=== PATIENT | female | born 1950 | race Caucasian/White ===

== ENCOUNTER → 2017-11-02 | Outpatient (CLI) | payer MEDICARE ==
[2017-11-02 11:34] LABS: T4, Free (Free Thyroxine) 0.95 ng/dL (0.78-2.19)
[2017-11-02 17:38] LABS: Hemoglobin A1C 5.2 % (4.0-6.0)
== END | disposition home or self-care (01) ==
LOC: LABWHC1 10:24
PROVIDERS: ATTEND Internal Medicine
DX: E03.9 Hypothyroidism, unspecified (principal); R73.01 Impaired fasting glucose
CPT/HCPCS: 36415; 80061; 82947; 83036; 84439; 84443; 84481

== ENCOUNTER → 2018-05-24 | Outpatient (CLI) | payer MEDICARE ==
--- NOTE | 2018-05-26 14:03 | MM ---
Reason for exam: screening (asymptomatic). Last mammogram was performed 1 year and 1 month ago. History: Patient is postmenopausal and has history of other cancer at age 62. 2 benign excisional biopsies of the right breast. Took hormonal contraceptives for 2 years beginning at age 15. Took estrogen for 1 year beginning at age 45. Taking unspecified hormones for 20 years beginning at age 38. MG 3D Screening Mammo W/Cad Bilateral CC and MLO view(s) were taken. Prior study comparison: April 11, 2017, bilateral MG 3d screening mammo w/cad. March 28, 2016, bilateral MG 3d screening mammo w/cad. The breast tissue is heterogeneously dense. This may lower the sensitivity of mammography. No significant changes when compared with prior studies. ASSESSMENT: Benign, BI-RAD 2 RECOMMENDATION: Routine screening mammogram of both breasts in 1 year.
== END | disposition home or self-care (01) ==
LOC: RADMAMWWP 09:37
PROVIDERS: ATTEND Internal Medicine
DX: Z12.31 Encounter for screening mammogram for malignant neoplasm of breast (principal)
CPT/HCPCS: 77063; 77067

== ENCOUNTER → 2019-03-04 | Outpatient (CLI) | payer MEDICARE ==
[2019-03-04 12:02] LABS: Basophils % (A) 1 %; Eosinophils % (A) 1 %; HCT 41.9 % (34.0-46.0); HGB 13.7 gm/dL (11.4-16.0); Lymphocytes # (A) 1.1 k/uL (1.0-4.8); Lymphocytes % (A) 26 %; MCH 31.6 pg (25.0-35.0); MCHC 32.8 g/dL (31.0-37.0); MCV 96.4 fL (80.0-100.0); Mean Platelet Volume 6.8; Monocytes # (A) 0.3 k/uL (0-1.0); Monocytes % (A) 6 %; Neutrophils # (A) 2.7 k/uL (1.3-7.7); Neutrophils % (A) 63 %; Platelet Count 304 k/uL (150-450); RBC 4.35 m/uL (3.80-5.40); RDW 12.6 % (11.5-15.5); WBC 4.3 k/uL (3.8-10.6)
[2019-03-04 13:02] LABS: Partial Thromboplastin Time 25.4 sec (22.0-30.0); Prothrombin Time 10.6 sec (9.0-12.0)
[2019-03-04 18:45] LABS: T4, Free (Free Thyroxine) 1.1 ng/dL (0.80-1.80)
[2019-03-04 19:12] LABS: Cardiolipin Ab IgG Interp NEGATIVE (NEGATIVE); Cardiolipin Ab IgM Interp NEGATIVE (NEGATIVE); Cardiolipin IgM Antibody 4.3 U/mL
[2019-03-04 19:37] LABS: Albumin 4.5 g/dL (3.80-4.90); Albumin/Globulin Ratio 2.5 (1.60-3.17); Anion Gap 5.9 mmol/L (4.00-12.00); BUN/Creat Ratio 26.67 Ratio (12.00-20.00); Calcium 9.8 mg/dL (8.7-10.3); Carbon Dioxide 29.1 mmol/L (21.6-31.8); Chol/HDL Ratio 2.52; Globulin 1.8 g/dL (1.6-3.3); Immunoglobulin E 7.84 IU/mL (0.00-114.00); LDL Cholesterol,Calculated 141.8 mg/dL (0.0-131.0); Non-African American GFR(CKD) 92.4 (60.0-200.0); Potassium 4.3 mmol/L (3.5-5.5); Total Bilirubin 0.7 mg/dL (0.3-1.2); Total Protein 6.3 g/dL (6.2-8.2); VLDL Calculation 15.2 mg/dL (5.00-40.00)
[2019-03-05 09:58] LABS: APTT 38 Sec(s) (<43); Anti-Thrombin III Antigen 105 % (80 - 120); Dilute Russell Viper Venom 34 Sec(s) (<44)
[2019-03-05 09:59] LABS: Free Protein S Antigen 89 % (50 - 147)
[2019-03-05 11:14] LABS: Protein C (Activity) 116 % (71-138)
[2019-03-05 13:21] LABS: Immunoglobulin M 37.6 mg/dL (40.0-280.0)
== END | disposition home or self-care (01) ==
LOC: LABWHC1 11:15
PROVIDERS: ATTEND Internal Medicine
DX: Z13.6 Encounter for screening for cardiovascular disorders (principal); E03.9 Hypothyroidism, unspecified; R19.4 Change in bowel habit; D68.69 Other thrombophilia; E55.9 Vitamin D deficiency, unspecified
CPT/HCPCS: 36415; 80053; 80061; 82306; 82784; 82785; 83090; 84439; 84443; 84481; 85025; 85301; 85303; 85306; 85610; 85613; 85730; 86147

== ENCOUNTER → 2019-04-01 | Outpatient (CLI) | payer MEDICARE ==
--- NOTE | 2019-04-01 13:03 | CTL ---
EXAMINATION TYPE: CT Low Dose Lung DATE OF EXAM ORDERED: 04/01/2019 COMPARISON: None HISTORY: . Low Dose CT Lung Screening CT DLP: [address] CTDI: 1.76 mGy IV CONTRAST USED: None. SCREENING VISIT: First visit COMPARISON: None. TECHNIQUE: Low dose computed tomography scan was performed through the chest at 1 millimeter thick se ctions and reconstructed images in the coronal plane at [address] DIAGNOSTIC QUALITY: Satisfactory FINDINGS: LUNG NODULES: Right lung: Pleural-based nodule right upper lobe 3 mm image 72. Solid pleural-based nodule right upp er lobe measuring 4 mm image 89. 2.5 mm right upper lobe pleural-based nodule image 124. 5 mm right u pper lobe pleural-based nodule image 161. 5.5 mm pleural-based nodules solid in appearance right lowe r lobe image 176. 3.5 mm pulmonary nodule is seen posteriorly image 182. Pleural-based nodule right l ower lobe measuring 2.8 mm image 193. 2.8 mm right lower lobe pleural-based primary nodule image 199. 5 mm pulmonary nodule right lower lobe image 213. Solid pleural-based nodule right lower lobe measur ing 8 mm image 235. Left lun mm pulmonary nodule left lower lobe image 256. Pleural-based pulmonary nodule left lower lobe measuring 4.6 mm. 4.2 mm left lower lobe pulmonary nodule image 2:30. Pleural-based 3 mm pulmon danika nodule image 130. 4 mm pulmonary nodule image 187. Left upper lobe pleural-based nodule measuring 3.2 mm image 90 LUNGS: COPD: Severity: None Fibrosis: Severity:None Lymph nodes: None Other findings: None RIGHT PLEURAL SPACE: Effusion: None Calcification: None Thickening: None Pneumothorax: None LEFT PLEURAL SPACE: Effusion: None Calcification: None Thickening: None Pneumothorax: None HEART: Heart Size: Mildly enlarged Coronary calcification: Mild Pericardial effusion: None OTHER FINDINGS: Upper abdomen: No significant abnormality Bony thorax: Degenerative changes Supraclavicular region: No significant abnormalityOther: No significant abnormalityI IMPRESSION: 1. Multiple bilateral pulmonary nodules largest of which measures [address] CHEST RECOMMENDATION: Follow-up recommended. Smoking cessation advised. CT LUNG RAD: LUNG RAD CATEGORY 3 probably benign
== END | disposition home or self-care (01) ==
LOC: RADCTMAIN 12:13
PROVIDERS: ATTEND Internal Medicine
DX: R91.8 Other nonspecific abnormal finding of lung field (principal); Z87.891 Personal history of nicotine dependence

== ENCOUNTER 2019-04-09 09:19 | Emergency (ER) | payer MEDICARE ==
[2019-04-09 09:25] VITALS: TEMP 97.7
[2019-04-09] MEDS ORDERED: MORPHINE SULFATE 4 MG/ML SYRINGE IVP STA (09:43)
[2019-04-09] MEDS ORDERED: MORPHINE SULFATE 2 MG/ML SYRINGE IM STA (09:50)
--- NOTE | 2019-04-09 09:57 | XR ---
EXAMINATION TYPE: XR pelvis AP view DATE OF EXAM: 04/09/2019 CLINICAL HISTORY: Falling injury with pelvic pain TECHNIQUE: A single AP view of the pelvis is obtained. COMPARISON: None. FINDINGS: There is no acute fracture/dislocation evident in the pelvis. The hip and sacroiliac join ts appear symmetric and unremarkable. Incidental moderate disc space narrowing L4-L5 level. The overl andreas soft tissue appears unremarkable. IMPRESSION: There is no acute fracture or dislocation in the pelvis.
--- NOTE | 2019-04-09 09:59 | XR ---
EXAMINATION TYPE: XR lumbar spine 2 or 3V DATE OF EXAM: 04/09/2019 CLINICAL HISTORY: Fall injury with low back pain TECHNIQUE: Frontal and lateral images of the lumbar spine are obtained. COMPARISON: None FINDINGS: There are 5 lumbar type vertebral bodies identified. The lumbar spine shows straightened alignment without evidence of acute fracture or dislocation. Vertebral body heights remain within nor mal limits. Moderate multilevel disc space narrowing L2-L3 through the L4-L5 levels with moderate ant erior spurring L2-L3 level. Facet arthropathy lower lumbar spine. The overlying soft tissue appears unremarkable. IMPRESSION: No acute fracture or dislocation is seen in the lumbar spine.
[2019-04-09 10:44] VITALS: PULSE 57; RESP 20
--- NOTE | 2019-04-09 10:45 | ED ---
General Adult HPI - General Chief complaint: Fall Stated complaint: fall/back pain Time Seen by Provider: 04/09/19 09:28 Source: patient, family, RN notes reviewed Mode of arrival: ambulatory - History of Present Illness Initial comments: 69-year-old female without any significant past medical history presents to the emergency department for a chief coming of fall. Patient was walking her dog when her dog lunged at another dog. This pulled her down onto the pavement and she fell on her lower back. Patient states she is having low back pain and abdominal pain. States the pain radiates from her low back and her abdomen. She denies any numbness or tingling of the saddle area. Denies any weakness of the lower extremities. Denies any difficulty ambulating. Denies fevers or chills. States his pain all started immediately after her fall.Patient has no other complaints at this time including shortness of breath, chest pain, nausea or vomiting, headache, or visual changes. - Related Data Home Medications Medication Instructions Recorded Confirmed Levothyroxine Sodium [Synthroid] 50 mcg PO DAILY 04/09/19 04/09/19 Allergies Allergy/AdvReac Type Severity Reaction Status Date / Time No Known Allergies Allergy Verified 04/09/19 10:07 Review of Systems ROS Statement: Those systems with pertinent positive or pertinent negative responses have been documented in the HPI. ROS Other: All systems not noted in ROS Statement are negative. Past Medical History Past Medical History: No Reported History History of Any Multi-Drug Resistant Organisms: None Reported Past Surgical History: Hysterectomy, Tonsillectomy Past Psychological History: No Psychological Hx Reported Smoking Status: Former smoker Past Alcohol Use History: Occasional Past Drug Use History: None Reported General Exam General appearance: alert, in no apparent distress Head exam: Present: atraumatic, normocephalic, normal inspection Eye exam: Present: normal appearance, PERRL, EOMI. Absent: scleral icterus, conjunctival injection, periorbital swelling ENT exam: Present: normal exam, mucous membranes moist Neck exam: Present: normal inspection, full ROM. Absent: tenderness, meningismus, lymphadenopathy Respiratory exam: Present: normal lung sounds bilaterally. Absent: respiratory distress, wheezes, rales, rhonchi, stridor Cardiovascular Exam: Present: regular rate, normal rhythm, normal heart sounds. Absent: systolic murmur, diastolic murmur, rubs, gallop, clicks GI/Abdominal exam: Present: soft, tenderness (Minimal generalized lower abdominal tenderness), normal bowel sounds. Absent: distended, guarding, rebound, rigid Back exam: Present: vertebral tenderness (Minimal generalized lumbar vertebral and paraspinal lumbar tenderness. No point tenderness). Absent: CVA tenderness (R), CVA tenderness (L) Psychiatric exam: Present: normal affect, normal mood Course Vital Signs 04/09/19 04/09/19 09:21 10:43 Temperature 97.7 F Pulse Rate 66 57 L Respiratory 18 20 Rate Blood Pressure 123/76 119/70 O2 Sat by Pulse 98 99 Oximetry Procedures - FAST Exam Fluid in Morison's pouch: No Fluid in Splenorenal Junction: No Fluid around bladder, Transverse view: No Fluid around bladder, Sagittal view: No Limited Echocardiogram view: subxiphoid Fluid in Pericardial Sac: No Gross Wall Motion Abnormality: No Study normal for this patient: Yes Images saved for further review: Yes Medical Decision Making - Medical Decision Making Patient was initially evaluated at some lower abdominal discomfort. Discussed the patient and we agreed at this time to get x-rays of the lumbar spine as well as the pelvis and give patient pain medication and to reevaluate her abdominal pain after x-ray. X-ray of the pelvis shows no acute fracture or dislocation. Lumbar spine x-ray shows no acute fracture or dislocation. I did reevaluate the patient and she continues to have very mild lower abdominal tenderness. No fevers or chills. At this point I recommended blood work and CT to evaluate this further evaluate for intra-abdominal trauma or other signs of abdominal pain. Patient adamantly refuses this stating she would much prefer to go home and return if she has worsening symptoms. She is aware of the risks of this including bleeding in abdomen or other intra-abdominal pathology unrelated to fall. Dr. Perdue did a bedside FAST exam which was negative. At this time patient will be discharged home to follow up with primary care. However discussed strict return parameters with her. Disposition Clinical Impression: Fall, Abdominal pain Disposition: HOME SELF-CARE Condition: Good Instructions (If sedation given, give patient instructions): Acute Abdominal Pain (ED) Additional Instructions: Please follow up with primary care in 1-2 days. Please return to the emergency department if you have any worsening symptoms such as fevers or worsening abdominal pain. Is patient prescribed a controlled substance at d/c from ED?: No Referrals: Scott Love MD [Primary Care Provider] - 1-2 days Time of Disposition: 11:16
[2019-04-09 12:40] VITALS: BP 117/74
== END 2019-04-09 12:41 | disposition home or self-care (01) ==
LOC: EC 09:19
DX: R10.9 Unspecified abdominal pain (principal); R10.817 Generalized abdominal tenderness; M54.5 Low back pain; Z87.891 Personal history of nicotine dependence; Z53.20 Procedure and treatment not carried out because of patient's decision for unspecified reasons; W10.1XXA Fall (on)(from) sidewalk curb, initial encounter; Y93.K1 Activity, walking an animal
CPT/HCPCS: 72100; 72170; 96372; 99283

== ENCOUNTER → 2019-12-26 | Outpatient (CLI) | payer MEDICARE ==
--- NOTE | 2019-12-26 11:13 | CTL ---
EXAMINATION TYPE: CT Low Dose Lung DATE OF EXAM ORDERED: 12/26/2019 HISTORY: 69-year-old female personal history of tobacco use/nicotine dependence. Lung cancer screening CT DLP: [address] CTDI: 1.49 mGy Automated exposure control for dose reduction was used. SCREENING VISIT: Short interval follow-up from 04/01/2019 COMPARISON: 04/01/2019 TECHNIQUE: Low dose computed tomography scan was performed through the chest at 1 mm thick sections and reconstructed images in the coronal and sagittal plane. CT DIAGNOSTIC QUALITY: Satisfactory FINDINGS: Heart normal size without pericardial effusion. Ectatic ascending aorta at 3.8 cm. Conventional vessel branching anatomy. No thoracic lymphadenopathy by CT size criteria. Biapical pleural parenchymal scarring. Scattered bilateral pulmonary nodules measuring up to 9 mm are redemonstrated. There are numerous bilateral pulmonary nodules, many of which are in a subpleural distribution and most of which measure 4 to 5 mm. No new pulmonary nodules are seen. No consolidation or pleural effusion. Strandy areas of atelectasis or scarring are noted. Small fat-containing left Bochdalek hernia. Redemonstrated scattered hypodense lesions within the liver, largest at the central right hepatic dome measuring 1.9 cm suggestive of cysts. Bones: No osseous destructive process. Superior endplate Schmorl's node of T12 is new as compared to 04/01/2019. IMPRESSION: 1. LungRADS 2 - benign; stable bilateral pulmonary nodules for 10 months measuring up to 9 mm. 2. A superior endplate Schmorl's node of T12 is new as compared to 04/01/2019. RECOMMENDATION: 1. CONTINUE ANNUAL LOW-DOSE LUNG CANCER SCREENING CT. 2. SMOKING CESSATION. FOLLOW UP CT CHEST RECOMMENDATION: [address] LUNG RAD: Lung-Rad 2 Benign Appearance or Behavior MTDD
== END | disposition home or self-care (01) ==
LOC: RADCTMAIN 07:56
PROVIDERS: ATTEND Internal Medicine
DX: Z12.2 Encounter for screening for malignant neoplasm of respiratory organs (principal); Z87.891 Personal history of nicotine dependence; R91.8 Other nonspecific abnormal finding of lung field

== ENCOUNTER 2020-01-24 08:06 | Day surgery (SDC) | payer MEDICARE ==
[2020-01-23 10:07] VITALS: BMI 20.7
[~2020-01-24 08:06] MED LIST: LACTATED RINGERS 1,000 ML IV SCH
[2020-01-24 08:26] VITALS: RESP 16; TEMP 98
[2020-01-24] MEDS ORDERED: LIDOCAINE 1% (10MG/ML) FOR IV START INTRADERMA ONE (08:37)
[2020-01-24] MEDS ORDERED: PROPOFOL 10 MG/ML 20 ML VIAL IV ONE (09:35)
--- NOTE | 2020-01-24 10:02 | P.PCN ---
Date of Procedure: 01/24/20 Procedure(s) Performed: BRIEF HISTORY: Patient is a 69-year-old pleasant female scheduled for an elective colonoscopy as a part of evaluation of prior history of colon polyps. Last colonoscopy was 5 years ago. PROCEDURE PERFORMED: Colonoscopy with snare polypectomy. PREOPERATIVE DIAGNOSIS: History of colon polyps. IV sedation per Anesthesia. PROCEDURE: After informed consent was obtained, the patient, was brought into the endoscopy unit. IV sedation was administered by Anesthesia under continuous monitoring. Digital rectal examination was normal. Initially the Olympus CF-160 flexible video colonoscope was then inserted in the rectum, gradually advanced into the cecum without any difficulty. Careful examination was performed as the scope was gradually being withdrawn. Ileocecal valve and the appendiceal orifice were visualized and appeared normal. Prep was excellent. Mucosa of the cecum, ascending colon, transverse colon, descending colon, sigmoid colon, and rectum appeared normal. In the proximal rectum there was a 5 mm polyp that was removed by snare polypectomy. Scattered left-sided diverticulosis seen. Retroflexion was performed in the rectum and no lesions were seen. The patient tolerated the procedure well. IMPRESSION: 5 mm proximal rectal polyp status post polypectomy Scattered left-sided diverticulosis RECOMMENDATIONS: Findings of this examination were discussed with the patient as well as her family. She was advised to follow with the biopsy results. She can have a repeat colonoscopy in 5 years based the biopsy results..
[2020-01-24 10:31] VITALS: BP 117/71; PULSE 51
== END 2020-01-24 10:48 | disposition home or self-care (01) ==
LOC: ORWHC2ENDO 08:06
PROVIDERS: ATTEND Internal Medicine Gastroenterology
DX: Z12.11 Encounter for screening for malignant neoplasm of colon (principal); K62.1 Rectal polyp; Z86.010 Personal history of colon polyps; K57.30 Diverticulosis of large intestine without perforation or abscess without bleeding; E07.9 Disorder of thyroid, unspecified; Z90.710 Acquired absence of both cervix and uterus; Z98.890 Other specified postprocedural states; Z79.890 Hormone replacement therapy
CPT/HCPCS: 88305; 45385; J2704

== ENCOUNTER → 2020-07-10 | Outpatient (CLI) | payer MEDICARE ==
[2020-07-10 12:32] LABS: ALT 16 U/L (4-34); AST 25 U/L (14-36); African American GFR (CKD) >90 (>60 ml/min/1.73 sqM); Albumin 3.9 g/dL (3.5-5.0); Albumin/Globulin Ratio 1.7; Alkaline Phosphatase 49 U/L (38-126); Anion Gap 3 mmol/L; Blood Urea Nitrogen 15 mg/dL (7-17); Calcium 9.6 mg/dL (8.4-10.2); Carbon Dioxide 32 mmol/L (22-30); Chloride 100 mmol/L (98-107); Globulin 2.3 g/dL; Glucose 105 mg/dL (74-99); Non-African American GFR(CKD) >90 (>60 ml/min/1.73 sqM); Potassium 4.8 mmol/L (3.5-5.1); Sodium 135 mmol/L (137-145); Total Bilirubin 0.4 mg/dL (0.2-1.3); Total Protein 6.2 g/dL (6.3-8.2)
[2020-07-10 12:49] LABS: T4, Free (Free Thyroxine) 0.99 ng/dL (0.78-2.19)
[2020-07-10 13:17] LABS: Appearance,Urine Clear (Clear); Bilirubin,Urine Negative (Negative); Blood,Urine Negative (Negative); Color,Urine Yellow; Glucose,Urine (UA) Negative (Negative); Ketones,Urine Negative (Negative); Leukocyte Esterase,Urine Negative (Negative); Nitrite,Urine Negative (Negative); PH, Urine 7.5 (5.0-8.0); Protein,Urine Negative (Negative); Specific Gravity,Urine 1.016 (1.001-1.035); Urobilinogen,Urine <2.0 mg/dL (<2.0)
[2020-07-10 13:20] LABS: Cholesterol 256 mg/dL (<200); HDL Cholesterol 95 mg/dL (40-60); LDL Cholesterol,Calculated 145 mg/dL (0-99); Triglycerides 78 mg/dL (<150)
[2020-07-10 20:09] LABS: Basophils # (A) 0.02 X 10*3/uL (0.00-0.10); Basophils % (A) 0.5 %; Eosinophils # (A) 0.04 X 10*3/uL (0.04-0.35); HCT 39.3 % (37.2-46.3); HGB 12.6 g/dL (12.0-15.0); Lymphocytes # (A) 1.22 X 10*3/uL (0.90-5.00); Lymphocytes % (A) 29.5 %; MCHC 32.1 g/dL (32.0-37.0); MCV 96.6 fL (80.0-97.0); Mean Platelet Volume 10.3 fL (9.5-12.2); Monocytes % (A) 12.1 %; Neutrophils # (A) 2.35 X 10*3/uL (1.80-7.70); Neutrophils % (A) 56.7 %; Platelet Count 290 X 10*3/uL (140-440); RBC 4.07 X 10*6/uL (4.10-5.20); RDW 13.2 % (11.5-14.5); WBC 4.14 X 10*3/uL (4.50-10.00)
== END | disposition home or self-care (01) ==
LOC: LABWHC1 10:22
PROVIDERS: ATTEND Internal Medicine
DX: Z00.01 Encounter for general adult medical examination with abnormal findings (principal); E03.9 Hypothyroidism, unspecified; E78.5 Hyperlipidemia, unspecified; E55.9 Vitamin D deficiency, unspecified
CPT/HCPCS: 36415; 80053; 80061; 81003; 82306; 84439; 84443; 84481; 85025

== ENCOUNTER → 2020-10-26 | Outpatient (CLI) | payer MEDICARE ==
--- NOTE | 2020-10-27 10:04 | MM ---
Reason for exam: screening (asymptomatic). Last mammogram was performed 2 years and 5 months ago. History: Patient is postmenopausal and has history of other cancer at age 62. 2 benign excisional biopsies of the right breast. Took hormonal contraceptives for 2 years beginning at age 15. Took estrogen for 1 year beginning at age 45. Taking unspecified hormones for 20 years beginning at age 38. Physical Findings: A clinical breast exam by your physician is recommended on an annual basis and results should be correlated with mammographic findings. MG 3D Screening Mammo W/Cad Bilateral CC and MLO view(s) were taken. Prior study comparison: May 24, 2018, bilateral MG 3d screening mammo w/cad. April 11, 2017, bilateral MG 3d screening mammo w/cad. There are scattered fibroglandular densities. ASSESSMENT: Negative, BI-RAD 1 RECOMMENDATION: Routine screening mammogram of both breasts in 1 year.
== END | disposition home or self-care (01) ==
LOC: RADMAMWWP 09:17
PROVIDERS: ATTEND Internal Medicine
DX: Z12.31 Encounter for screening mammogram for malignant neoplasm of breast (principal)
CPT/HCPCS: 77063; 77067

== ENCOUNTER → 2021-07-01 | Outpatient (CLI) | payer MEDICARE ==
--- NOTE | 2021-07-02 00:02 | CTL ---
EXAMINATION TYPE: CT Low Dose Lung DATE OF EXAM ORDERED: 07/01/2021 HISTORY: Former smoker. Lung cancer screening CT DLP: [address] CTDI: 1.64 mGy Automated exposure control for dose reduction was used. SCREENING VISIT: Follow-up COMPARISON: CT dated 12/26/2019 TECHNIQUE: Low dose computed tomography scan was performed through the chest at 1 mm thick sections a nd reconstructed images in multiple planes at 1 mm and [address] DIAGNOSTIC QUALITY: Satisfactory FINDINGS: LUNG NODULES: No appreciable interval changes regarding the multiple variable sized bilateral pulmona ry and pleural-based calcified and noncalcified nodules measuring up to 9 mm. No definite lung nodule identified. LUNGS: COPD: Severity: Mild Fibrosis: Severity: Stable mild fibrotic changes in the lung apices bilaterally as well as the chroni c scar at the medial aspect of the middle lobe with traction bronchiectasis Lymph nodes: None Other findings: None RIGHT PLEURAL SPACE: Effusion: None Calcification: None Thickening: None Pneumothorax: None LEFT PLEURAL SPACE: Effusion: None Calcification: None Thickening: None Pneumothorax: None HEART: Heart Size: Normal Coronary Calcification: Mild Pericardial Effusion: None OTHER FINDINGS: Upper abdomen: Stable scattered hepatic hypodensities. Bony thorax: Stable mild T11 upper endplate depression and hemangioma within T9 vertebral body. Supraclavicular region: None Other: The pulmonary trunk measures 2.2 cm. IMPRESSION: Stable bilateral pulmonary nodules measuring up to 9 mm as described above. No definite n ew lung nodule identified. CT LUNG RAD AND CT CHEST RECOMMENDATION: Category 2, benign, for continuing annual follow-up in 12 mo nths. S Modifier (other clinically significant findings): None
== END | disposition home or self-care (01) ==
LOC: RADCTMAIN 07:08
PROVIDERS: ATTEND Family Medicine
DX: Z12.2 Encounter for screening for malignant neoplasm of respiratory organs (principal); Z87.891 Personal history of nicotine dependence
CPT/HCPCS: 71271

== ENCOUNTER → 2021-11-16 | Outpatient (CLI) | payer MEDICARE ==
--- NOTE | 2021-11-17 07:39 | MM ---
Reason for Exam: Screening (asymptomatic). Last mammogram was performed 1 year(s) and 1 month(s) ago. Patient History: Menarche at age 10. First Full-Term at age 25. Hysterectomy at age 44. Postmenopausal. Other cancer, age 62. Estrogen for 1 year from age 45 until age 46. Hormonal Contraceptives for 2 years from age 15 until age 23. Currently using Unspecified Hormone, beginning at age 38 for 20 years. Benign Excisional Biopsy on the right side. Benign Excisional Biopsy on the right side. Risk Values: Rosenda 5 year model risk: 2.9%. NCI Lifetime model risk: 7.1%. Prior Study Comparison: 04/11/2017 Bilateral Screening Mammogram, [facility]. 05/24/2018 Bilateral Screening Mammogram, [facility]. 10/26/2020 Bilateral Screening Mammogram, [facility]. Tissue Density: The breast tissue is heterogeneously dense. This may lower the sensitivity of mammography. Findings: Analyzed By CAD. There is no suspicious group of microcalcifications or new suspicious mass in either breast. Overall Assessment: Negative, BI-RAD 1 Management: Screening Mammogram of both breasts in 1 year. A clinical breast exam by your physician is recommended on an annual basis and results should be correlated with mammographic findings. Electronically signed and approved by: Wili Florez M.D. Radiologis
== END | disposition home or self-care (01) ==
LOC: RADMAMWWP 11:26
PROVIDERS: ATTEND Family Medicine
DX: Z12.31 Encounter for screening mammogram for malignant neoplasm of breast (principal)
CPT/HCPCS: 77063; 77067

== ENCOUNTER 2022-07-19 09:49 | Day surgery (SDC) | payer MEDICARE ==
[2022-07-14 17:19] VITALS: BMI 21.9
[~2022-07-19 09:49] MED LIST changes: +LIDOCAINE 1% (10MG/ML) FOR IV START INTRADERMA PRN
[2022-07-19 10:16] VITALS: TEMP 97.5
[2022-07-19] MEDS ORDERED: LIDOCAINE 2% INJ 20 MG/ML (2 ML VIAL) ONE (11:26)
[2022-07-19] MEDS ORDERED: PROPOFOL 10 MG/ML 20 ML VIAL IV ONE (11:26)
--- NOTE | 2022-07-19 11:40 | P.PCN ---
Date of Procedure: 07/19/22 Procedure(s) Performed: BRIEF HISTORY: Patient is a 72-year-old pleasant white female scheduled for an elective colonoscopy as a part of screening for colon cancer/positive ologuard. PROCEDURE PERFORMED: Colonoscopy. PREOPERATIVE DIAGNOSIS: Screening for colon cancer/positive cologuard. IV sedation per Anesthesia. PROCEDURE: After informed consent was obtained, the patient, was brought into the endoscopy unit. IV sedation was administered by Anesthesia under continuous monitoring. Digital rectal examination was normal. Initially the Olympus CF-160 flexible video colonoscope was then inserted in the rectum, gradually advanced into the cecum without any difficulty. Careful examination was performed as the scope was gradually being withdrawn. Ileocecal valve and the appendiceal orifice were visualized and appeared normal. Prep was excellent. Mucosa of the cecum, ascending colon, transverse colon, descending colon, sigmoid colon, and rectum appeared normal. Scattered sigmoid diverticulosis Retroflexion was performed in the rectum and small internal hemorrhoids were seen. The patient tolerated the procedure well. IMPRESSION: Normal-appearing colon from rectum to cecum no evidence of colorectal neoplasia Scattered sigmoid diverticulosis and small internal hemorrhoids. RECOMMENDATIONS: Findings of this examination were discussed with the patient as well as a family. She was advised to have a repeat screening colonoscopy in 10 years..
[2022-07-19 11:47] VITALS: RESP 16
[2022-07-19 11:59] VITALS: BP 128/80; PULSE 58
== END 2022-07-19 12:14 | disposition home or self-care (01) ==
LOC: ORWHC2ENDO 09:49
PROVIDERS: ATTEND Internal Medicine Gastroenterology
DX: K64.8 Other hemorrhoids (principal); K57.30 Diverticulosis of large intestine without perforation or abscess without bleeding; E03.9 Hypothyroidism, unspecified; Z79.890 Hormone replacement therapy
CPT/HCPCS: 45378; J2704; J2001

== ENCOUNTER 2022-11-06 12:57 | Emergency (ER) | payer MEDICARE ==
[2022-11-06 13:04] VITALS: RESP 18
[2022-11-06 13:46] LABS: Basophils % (A) 0 %; Eosinophils # (A) 0.1 k/uL (0-0.7); Eosinophils % (A) 2 %; HGB 14.3 gm/dL (11.4-16.0); Lymphocytes # (A) 1.5 k/uL (1.0-4.8); Lymphocytes % (A) 27 %; MCH 31.6 pg (25.0-35.0); MCHC 33.3 g/dL (31.0-37.0); MCV 94.8 fL (80.0-100.0); Mean Platelet Volume 8.4; Monocytes # (A) 0.4 k/uL (0-1.0); Monocytes % (A) 8 %; Neutrophils # (A) 3.4 k/uL (1.3-7.7); Neutrophils % (A) 61 %; Platelet Count 293 k/uL (150-450); RBC 4.54 m/uL (3.80-5.40); RDW 12.7 % (11.5-15.5); WBC 5.5 k/uL (3.8-10.6)
--- NOTE | 2022-11-06 13:51 | XR ---
EXAMINATION TYPE: XR chest 2V DATE OF EXAM: 11/06/2022 COMPARISON: None INDICATION: Chest pain and tachycardia TECHNIQUE: Frontal and lateral views of the chest are obtained. FINDINGS: The heart size is normal. The pulmonary vasculature is normal. The lungs are clear. There is hyperinflation and flattened diaphragms. Correlate for emphysematous c hange IMPRESSION: 1. No acute pulmonary process. 2. Emphysematous type changes
[2022-11-06 13:56] LABS: Partial Thromboplastin Time 23.4 sec (22.0-30.0); Prothrombin Time 10.7 sec (9.0-12.0)
[2022-11-06 14:03] LABS: ALT 17 U/L (4-34); AST 25 U/L (14-36); African American GFR (CKD) >90 (>60 ml/min/1.73 sqM); Albumin 4.2 g/dL (3.5-5.0); Alkaline Phosphatase 68 U/L (38-126); Anion Gap 8 mmol/L; Blood Urea Nitrogen 17 mg/dL (7-17); Calcium 9.4 mg/dL (8.4-10.2); Carbon Dioxide 23 mmol/L (22-30); Chloride 101 mmol/L (98-107); Glucose 145 mg/dL (74-99); Magnesium 1.9 mg/dL (1.6-2.3); Non-African American GFR(CKD) 89 (>60 ml/min/1.73 sqM); Potassium 4.1 mmol/L (3.5-5.1); Sodium 132 mmol/L (137-145); Total Bilirubin 0.8 mg/dL (0.2-1.3); Total Protein 6.7 g/dL (6.3-8.2)
--- NOTE | 2022-11-06 16:08 | ED ---
Chest Pain HPI - General Chief Complaint: Chest Pain Stated Complaint: chest pain Time Seen by Provider: 11/06/22 13:10 Source: patient Mode of arrival: wheelchair - History of Present Illness Initial Comments: 72-year-old female presents to the emergency department complaining of rapid heart rate. States that she was at home. She went to go upstairs to change her clothes so she could go to the store when she began having a rapid heart rate. She put her apple watch on which stated that her heart rate was 180. Heart rate lasted for approximately 30 minutes before the rapid heart rate stopped. She denies having any issues with irregular heart rhythms. She did not have any chest pain but admits to mild shortness of breath. No nausea or vomiting. No history of coronary disease. No other alleviating, precipitating or modifying factors - Related Data Home Medications Medication Instructions Recorded Confirmed Levothyroxine Sodium [Synthroid] 50 mcg PO QAM 04/09/19 07/19/22 Biotin 5 mg PO DAILY 01/23/20 07/19/22 Cholecalciferol [Vitamin D3 (25 2,000 unit PO DAILY 01/23/20 07/19/22 Mcg = 1000 Iu)] Folic Acid 1 mg PO DAILY 01/23/20 07/19/22 estradioL [Yuvafem] 10 mcg VG Q3D 01/23/20 07/19/22 Mv,Calcium,Min/Iron/Folic/Vitk 1 each PO DAILY 07/14/22 07/19/22 [One-A-Day Women's Complete Tab] Allergies Allergy/AdvReac Type Severity Reaction Status Date / Time No Known Allergies Allergy Verified 07/19/22 10:11 Review of Systems ROS Statement: Those systems with pertinent positive or pertinent negative responses have been documented in the HPI. ROS Other: All systems not noted in ROS Statement are negative. Past Medical History Past Medical History: Cancer, Thyroid Disorder Additional Past Medical History / Comment(s): hx hemorrhoids occas bleeding, polyps with last colonoscopy,hypoglycemia,skin CA removed History of Any Multi-Drug Resistant Organisms: None Reported Past Surgical History: Hysterectomy, Tonsillectomy Additional Past Surgical History / Comment(s): Moh's procedure, COLONOSCOPY Past Anesthesia/Blood Transfusion Reactions: No Reported Reaction Past Psychological History: No Psychological Hx Reported Smoking Status: Former smoker Past Alcohol Use History: None Reported Past Drug Use History: None Reported - Past Family History Mother Family Medical History: Cancer Additional Family Medical History / Comment(s): lung Brother(s) Family Medical History: Deep Vein Thrombosis (DVT) Father Family Medical History: Pulmonary Embolus General Exam General appearance: alert, in no apparent distress Head exam: Present: atraumatic, normocephalic, normal inspection Eye exam: Present: normal appearance, PERRL, EOMI. Absent: scleral icterus, conjunctival injection, periorbital swelling ENT exam: Present: normal exam, mucous membranes moist Neck exam: Present: normal inspection. Absent: tenderness, meningismus, lymphadenopathy Respiratory exam: Present: normal lung sounds bilaterally. Absent: respiratory distress, wheezes, rales, rhonchi, stridor Cardiovascular Exam: Present: regular rate, normal rhythm, normal heart sounds. Absent: systolic murmur, diastolic murmur, rubs, gallop, clicks GI/Abdominal exam: Present: soft, normal bowel sounds. Absent: distended, tenderness, guarding, rebound, rigid Extremities exam: Present: normal inspection, full ROM, normal capillary refill. Absent: tenderness, pedal edema, joint swelling, calf tenderness Back exam: Present: normal inspection Neurological exam: Present: alert, oriented X3, CN II-XII intact Psychiatric exam: Present: normal affect, normal mood Skin exam: Present: warm, dry, intact, normal color. Absent: rash Course Vital Signs 11/06/22 11/06/22 11/06/22 13:00 13:13 14:00 Temperature 98.2 F Pulse Rate 102 H 88 78 Respiratory 18 16 12 Rate Blood Pressure 141/82 115/75 O2 Sat by Pulse 98 99 96 Oximetry 11/06/22 11/06/22 11/06/22 15:00 15:17 16:24 Temperature 98.1 F Pulse Rate 76 70 60 Respiratory 16 18 18 Rate Blood Pressure 115/75 129/77 122/78 O2 Sat by Pulse 96 98 99 Oximetry Chest Pain MDM - MDM Was pt. sent in by a medical professional or institution (, PA, TRAY CASTING MACHINE OPERATOR, urgent care, hospital, or snf...) When possible be specific @ -No Did you speak to anyone other than the patient for history (EMS, parent, family, police, friend...)? What history was obtained from this source @ -No Did you review nursing and triage notes (agree or disagree)? Why? @ -I reviewed and agree with nursing and triage notes Were old charts reviewed (outside hosp., previous admission, EMS record, old EKG, old radiological studies, urgent care reports/EKG's, snf records)? Report findings @ -No old charts were reviewed Differential Diagnosis (chest pain, altered mental status, abdominal pain women, abdominal pain men, vaginal bleeding, weakness, fever, dyspnea, syncope, headache, dizziness, GI bleed, back pain, seizure, CVA, palpatations, mental health, musculoskeletal)? @ -svt, afib, vtach, hyperthyroid EKG interpreted by me (3pts min.). @ -Yes and demonstrates sinus rhythm with a rate of 94. AK interval 159. QRS 85. QTC of 43. No acute ST segment elevations or depressions X-rays interpreted by me (1pt min.). @ -yes, no acute process CT interpreted by me (1pt min.). @ -None done U/S interpreted by me (1pt. min.). @ -None done What testing was considered but not performed or refused? (CT, X-rays, U/S, labs)? Why? @ -None What meds were considered but not given or refused? Why? @ -None Did you discuss the management of the patient with other professionals (professionals i.e. , PA, TRAY CASTING MACHINE OPERATOR, lab, RT, psych nurse, delinquency prevention social worker, afloat cryptologic manager, teacher, department of natural resources officer, child support case officer)? Give summary @ -No Was smoking cessation discussed for >3mins.? @ -No Was critical care preformed (if so, how long)? @ -No Were there social determinants of health that impacted care today? How? (Homelessness, low income, unemployed, alcoholism, drug addiction, transportation, low edu. Level, literacy, decrease access to med. care, senior living, rehab)? @ -No Was there de-escalation of care discussed even if they declined (Discuss DNR or withdrawal of care, Hospice)? DNR status @ -No What co-morbidities impacted this encounter? (DM, HTN, Smoking, COPD, CAD, Cancer, CVA, ARF, Chemo, Hep., AIDS, mental health diagnosis, sleep apnea, morbid obesity)? @ -None Was patient admitted / discharged? Hospital course, mention meds given and route, prescriptions, significant lab abnormalities, going to OR and other pertinent info. @ -Upon arrival patient is placed into room 6. The history of physical exam is performed. She is placed on continuous pulse ox and cardiac monitoring. 12- lead EKG was obtained. Laboratory studies are conducted and reviewed. Patient does not have any rapid heart rate while within the emergency room. Did discuss treatment options. Patient feels comfortable going home. Instructed her that she needs Holter testing. She is to call her primary care doctor tomorrow for them to set this up. If she has any new or worsening symptoms she should return to the emergency room. Patient was agreeable to this plan she was discharged in stable condition Undiagnosed new problem with uncertain prognosis? @ -yes Drug Therapy requiring intensive monitoring for toxicity (Heparin, Nitro, Insulin, Cardizem)? @ -No Were any procedures done? @ -No Diagnosis/symptom? @ -acute palpitations Acute, or Chronic, or Acute on Chronic? @ -acute Uncomplicated (without systemic symptoms) or Complicated (systemic symptoms)? @ -complicated Side effects of treatment? @ -No Exacerbation, Progression, or Severe Exacerbation? @ -No Poses a threat to life or bodily function? How? (Chest pain, [place], [place], pneumonia, PE, COPD, DKA, ARF, appy, cholecystitis, CVA, Diverticulitis, Homicidal, [place] icidal, threat to staff... and all critical care pts) @ -No Disposition Clinical Impression: Palpitations Disposition: HOME SELF-CARE Condition: Stable Instructions (If sedation given, give patient instructions): Heart Palpitations (DC) Additional Instructions: Please call your doctor within the next 2-4 days. You should have Holter monitoring done. Return for any new or worsening symptoms Is patient prescribed a controlled substance at d/c from ED?: No Referrals: Delmar Pulliam MD [Primary Care Provider] - 1-2 days Time of Disposition: 16:08
[2022-11-06 16:31] VITALS: BP 122/78; PULSE 60; TEMP 98.1
== END 2022-11-06 16:32 | disposition home or self-care (01) ==
LOC: EC 12:57
DX: R00.2 Palpitations (principal); E07.9 Disorder of thyroid, unspecified; Z87.891 Personal history of nicotine dependence; Z79.890 Hormone replacement therapy
CPT/HCPCS: 36415; 71046; 80053; 83735; 83880; 84443; 84484; 85025; 85610; 85730; 93005; 99285

== ENCOUNTER → 2023-03-07 | Outpatient (CLI) | payer MEDICARE ==
[2023-03-07 13:44] LABS: African American GFR (CKD) >90 (>60 ml/min/1.73 sqM); Blood Urea Nitrogen 17 mg/dL (7-17); Non-African American GFR(CKD) >90 (>60 ml/min/1.73 sqM)
--- NOTE | 2023-03-07 22:10 | CT ---
EXAMINATION TYPE: CT chest w con DATE OF EXAM: 03/07/2023 COMPARISON: Radiograph 11/06/2022. CT low-dose chest 07/01/2021 HISTORY: 72-year-old female are 9 1.8 Hx pulmonary nodule TECHNIQUE: Contiguous axial scanning of the chest after the administration of 100 mL of Isovue 300. Coronal/sagittal reconstructions performed. CT DLP: 163.3mGycm. Automatic exposure control utilized for a dose reduction. FINDINGS: The heart is normal size without pericardial effusion. Borderline ectatic aortic root at 3.6 cm. Conventional arch vessel branching anatomy. No thoracic lymphadenopathy by CT size criteria. * 9 mm subpleural pulmonary nodule lateral right base is unchanged. * 6 mm peripheral right lower lobe pulmonary nodule, axial image 47 is unchanged. * 4 mm subpleural pulmonary nodule anterior right middle lobe, axial image 51 is unchanged. * 6 mm medial right middle lobe pulmonary nodule associated with some strandy scarring, axial image 45 is unchanged. * 5 mm subpleural pulmonary nodule lateral right midlung and 4 mm subpleural pulmonary nodule media relations specialist ior right midlung, axial image 37 old are unchanged. * 4 mm posteromedial right upper lung pulmonary nodule axial image 23 is unchanged. * 4 mm lateral right upper lobe pulmonary nodule axial image 18 is unchanged. * Mild right apical pleural parenchymal scarring. * 4 mm posterior left lower lobe pulmonary nodule, axial image 39 is unchanged. * 4 mm anterolateral left basilar pulmonary nodule axial image 50 is unchanged. * Posterior subpleural nodularity measuring up to 5 mm posterior left lower lobe, axial image 52 and 54 are unchanged. Small fat-containing left Bochdalek hernia. * A couple hemangiomas are noted at the left hepatic dome measuring 1.7 cm and 1.4 cm. Additional he patic cysts measuring up to 2.1 cm. * There is a tiny midline epigastric ventral abdominal wall hernia containing omental fat measuring 1.7 cm wide, axial image 65. * Mild thickening left adrenal gland without discrete nodularity. * Circumaortic left renal vein. * Some possible mural thickening at the distal gastric antrum, axial image 74. Correlate with patien t's symptoms and with direct visualization. Bones: Superior endplate Schmorl's node noted T11. Fatty matrix hemangioma T9. Moderate degenerative disc disease L2-L3. IMPRESSION: 1. Numerous scattered bilateral pulmonary nodules measuring up to 9 mm remain unchanged for about a y ear and a half. Recommend returning to annual low-dose lung cancer screening CT. 2. Some possible mural thickening at the distal gastric antrum. Correlate for any symptoms of gastrit is. Direct visualization to exclude the possibility of underlying neoplasm.
== END | disposition home or self-care (01) ==
LOC: RADCTMAIN 13:05
PROVIDERS: ATTEND Internal Medicine
DX: R91.8 Other nonspecific abnormal finding of lung field (principal)
CPT/HCPCS: 82565; 84520; 71260; 36415; Q9967

== ENCOUNTER → 2023-07-14 | Outpatient (CLI) | payer MEDICARE ==
--- NOTE | 2023-07-16 22:25 | PE ---
EXAMINATION TYPE: PET CT fusion skull to thigh DATE OF EXAM: 07/14/2023 CLINICAL INDICATION:Female, 73 years old with history of R91.8; TECHNIQUE: Following the intravenous administration of 10.5 mCi of F-18 FDG, whole body images are performed from the skull base to the midthigh. Images are reviewed on the computer in the coronal, a xial, and sagittal planes. Reconstructed rotating images are created on independent workstation and reviewed on the computer. A non-contrast CT is performed in conjunction with the PET scan. Glucose level 90 mg/dL CT DLP: 189 mGycm, Automated exposure control for dose reduction was used. COMPARISON: CT 03/07/2023, PET/CT None, FINDINGS: Mediastinal SUV mean is 1.7. Hepatic parenchyma SUV mean is 2.4. SKULL BASE AND NECK: No suspicious radiotracer activity. CHEST, MEDIASTINUM, AND HILAR REGION: * Scattered pulmonary nodules. The largest in the right upper lung along the periphery measuring up to 9 mm Max SUV 0.9. No nodules with increased metabolic activity identified note some of these are t oo small for sensitivity of PET/CT. ABDOMEN AND PELVIS: * Abnormal uptake near the duodenum/gastric antrum antrum max SUV 5.1. MUSCULOSKELETAL STRUCTURES: No suspicious radiotracer activity. OTHER CT: Hepatic cysts. Scattered atherosclerosis aorta vasculature. Bilateral fat-containing inguin al hernias. Clonic diverticulosis. The uterus appears surgically absent or atrophic. IMPRESSION: 1. No suspicious radiotracer within the pulmonary nodules, some are below the sensitivity of PET/CT. 2. Abnormal uptake near the duodenum/gastric antrum correlate for signs and symptoms of duodenitis/p eptic ulcer disease is mass.
== END | disposition home or self-care (01) ==
LOC: RADPETMAIN 09:55
PROVIDERS: ATTEND Internal Medicine
DX: R91.8 Other nonspecific abnormal finding of lung field (principal)
CPT/HCPCS: 78815; A9552

== ENCOUNTER → 2023-10-12 | Outpatient (CLI) | payer MEDICARE ==
--- NOTE | 2023-10-12 20:09 | BD ---
EXAMINATION TYPE: Axial Bone Density DATE OF EXAM: 10/12/2023 CLINICAL HISTORY: 73 years old Female. ICD-10 CODE: M85.852 OTHER DISORDER OF BONE AND STRUCURE Height: 61.7 in Weight: 126 lbs FRAX RISK QUESTIONS: Alcohol (3 or more units per day): yes History of Fracture in Adulthood: lt foot fx age 63 MEDICATIONS: Thyroid Medications: yes Which medication: Levothyroxine How Lon+ years EXAM MEASUREMENTS: Bone mineral densitometry was performed using the Root4 System. Bone mineral density as measured about the Lumbar spine is: ----- L1-L4(G/cm2): 1.036 T Score Values are as follows: ----- L1: -2.4 ----- L2: -1.0 ----- L3: -1.3 ----- L4: -0.5 ----- L1-L4: -1.2 Z Score Values are as follows: ----- L1: -0.4 ----- L2: 1.0 ----- L3: 0.7 ----- L4: 1.5 ----- L1-L4: 0.8 Bone mineral density has: Increased 2.8% since study of: 07/29/2014 Bone mineral density about the R hip (g/cm2): 0.841 Bone mineral density about the L hip (g/cm2): 0.787 T Score values are as follows: -----R Neck: -2.0 -----L Neck: -2.1 -----R Total: -1.3 -----L Total: -1.7 Z Score values are as follows: -----R Neck: 0.2 -----L Neck: 0.0 -----R Total: 0.6 -----L Total: 0.2 Bone mineral density has: Decreased -4.1% since study of: 07/29/2014 FRAX%s: The graph provided illustrates a 25.3% chance for a major osteoporotic fx and a 8.4% chance f or the hips probability for fx in 10 years time. IMPRESSION: Osteopenia (T Score between -2.5 and -1). There is slightly increased risk of fracture and the patient may be considered for treatment. Re-Screen 2-5 years. NOTE: T-SCORE=SD OF THE YOUNG ADULT MEAN.
== END | disposition home or self-care (01) ==
LOC: RADBDWWP 14:56
PROVIDERS: ATTEND Internal Medicine
DX: M85.89 Other specified disorders of bone density and structure, multiple sites (principal)
CPT/HCPCS: 77080

== ENCOUNTER → 2024-01-15 | Outpatient (CLI) | payer MEDICARE ==
--- NOTE | 2024-01-15 18:42 | MM ---
Reason for Exam: Screening (asymptomatic). Last mammogram was performed 1 year(s) and 2 month(s) ago. Patient History: Menarche at age 10. First Full-Term at age 25. Hysterectomy at age 44. Postmenopausal. Other cancer, age 62. Estrogen for 1 year from age 45 until age 46. Hormonal Contraceptives for 2 years from age 15 until age 23. Benign Excisional Biopsy on the right side. Benign Excisional Biopsy on the right side. Risk Values: Rosenda 5 year model risk: 2.9%. NCI Lifetime model risk: 6.3%. Prior Study Comparison: 10/26/2020 Bilateral Screening Mammogram, [facility]. 11/16/2021 Bilateral MG 3D screening mammo w/cad, [facility]. 11/25/2022 Bilateral MG 3D screening mammo w/cad, [facility]. Tissue Density: There are scattered areas of fibroglandular density. Findings: Analyzed By CAD. There is no suspicious group of microcalcifications or new suspicious mass in either breast. Overall Assessment: Negative, BI-RAD 1 Management: Screening Mammogram of both breasts in 1 year. . Patient should continue monthly self-breast exams. A clinical breast exam by your physician is recommended on an annual basis. This exam should not preclude additional follow-up of suspicious palpable abnormalities. Note on Rosenda scores and lifetime risk: 1. A Rosenda score greater than 3% is considered moderate risk. If this is the case, consider specialist referral to assess eligibility for a risk reducing agent. 2. If overall lifetime risk for the development of breast cancer is 20% or higher, the patient may qualify for future screening with alternating mammogram and breast MRI. Electronically signed and approved by: Pat Sharp M.D. Radiologist
== END | disposition home or self-care (01) ==
LOC: RADMAMWWP 13:58
PROVIDERS: ATTEND Internal Medicine
DX: Z12.31 Encounter for screening mammogram for malignant neoplasm of breast
CPT/HCPCS: 77063; 77067

== ENCOUNTER → 2024-08-09 | Outpatient (CLI) | payer MEDICARE, OTHER ==
--- NOTE | 2024-08-09 14:52 | CTL ---
EXAMINATION TYPE: CT Low Dose Lung DATE OF EXAM ORDERED: 08/09/2024 COMPARISON: PET CT 07/14/2023, CT chest 03/07/2023, CT Low Dose Lung 07/01/2021, 12/26/2019, 04/01/2019 CLINICAL INDICATION: Female, 74 years old with history of Z12.2 LUNG CA SCR Z87.891 FORMER I34.0 I65. 29; [facility], LUNG CA SCREENING, Lung cancer screening, History of Smoking/tobacco use. TECHNIQUE: Low dose computed tomography scan was performed through the chest at 1 mm thick sections a nd reconstructed images in multiple planes at 1 mm and [address] DLP: 63.[address] CTDI: 1.8 mGy Automated exposure control for dose reduction was used. CT DIAGNOSTIC QUALITY: Satisfactory FINDINGS: Nodules: Multiple stable pulmonary nodules prior exam with examples including a right lower lobe subpleural 8. 5 mm pulmonary nodule (series 6, image 48), right lower lobe 4.1 mm pulmonary nodule (series 6, image 46). Right midlung subpleural 6.3 mm pulmonary nodule (series 6, image 35). Left lower lobe subpleur al 6.1 mm pulmonary nodule (series 6 image 49). Right upper lobe 3.6 mm pulmonary nodule. No distinct new or enlarging pulmonary nodules. LUNGS: COPD: Severity: Minimal Fibrosis: Severity: None Lymph nodes: None Other findings: Small fat filled left Bochdalek hernia. Minimal biapical pleural parenchymal scarring with recurrent left. Linear scarring along the medial aspect of the lower aspect of the right upper lobe. RIGHT PLEURAL SPACE: Effusion: None Calcification: None Thickening: None Pneumothorax: None LEFT PLEURAL SPACE: Effusion: None Calcification: None Thickening: None Pneumothorax: None HEART: Heart Size: Normal, small aortic valvular and mitral annulus calcifications. Coronary Calcification: None Pericardial Effusion: None OTHER FINDINGS: Upper abdomen: Few hepatic cysts redemonstrated. Known left hepatic lobe hemangiomas at that apprecia arianna on prior contrast CT. Bony thorax: Benign vertebral hemangioma involving the T9 vertebral body. Schmorl's level is apparent ly the T11 vertebral body redemonstrated. Under degenerative disc disease at L2-L3 redemonstrated. Supraclavicular region: None Other: None IMPRESSION: Multiple stable pulmonary nodules from prior exam. No new or enlarging pulmonary nodules. CT LUNG RAD AND CT CHEST RECOMMENDATION: Lung-Rad 2 Benign Appearance or Behavior: Continue annual sc reening with LDCT in 12 months. S Modifier (other clinically significant findings): None [facility], , 08/09/2024 2:49 PM
--- NOTE | 2024-08-09 15:02 | US ---
EXAMINATION TYPE: US carotid duplex BILAT DATE OF EXAM: 08/09/2024 COMPARISON: NONE CLINICAL INDICATION: Female, 74 years old with history of I65.23 CAROTID STENOSIS; No HTN. No hx tia . High cholesterol Additional History: .... TECHNIQUE: Grayscale, color Doppler and spectral Doppler evaluation of the bilateral carotid systems and vertebral arteries. Indirect Doppler criteria was utilized. FINDINGS: EXAM MEASUREMENTS: RIGHT: Peak Systolic Velocity (PSV) cm/sec ----- Right CCA: 54.5 ----- Right ICA: 66.6 ----- Right ECA: 53.8 ICA/CCA ratio: 1.2 RIGHT: End Diastole cm/sec ----- Right CCA: 15.4 ----- Right ICA: 30.3 ----- Right ECA: 0.0 LEFT: Peak Systolic Velocity (PSV) cm/sec ----- Left CCA: 71.2 ----- Left ICA: 73.8 ----- Left ECA: 56.6 ICA/CCA ratio: 1.0 LEFT: End Diastole cm/sec ----- Left CCA: 18.8 ----- Left ICA: 31.9 ----- Left ECA: 0.0 VERTEBRALS (direction of flow): Right Vertebral: Antegrade Left Vertebral: Antegrade Rhythm: Arrhythmia ANALYTICS CONSULTANT NOTES: No elevated velocities or wall thickening. Color Doppler imaging shows patency with blood flow throughout the carotid artery. Spectral waveforms are within normal limits. IMPRESSION: Right: No hemodynamically significant stenosis. Left: No hemodynamically significant stenosis. Criteria for Assigning % of Stenosis / Diameter reduction (Estimation based on the indirect measurements of the internal carotid artery velocities (ICA PSV). 1. Normal (no stenosis)=ICA PSV < 180 cm/s: ratio < 2.0: ICA EDV<40 cm/s. 2. Less than 50% stenosis=ICA PSV < 180 cm/s: ratio < 2.0: ICA EDV<40 cm/s. 3. 50 to 69% stenosis=ICA PSV of 180 to 230 cm/s: ration 2.0 ? 4.0: ICA EDV 40-100 cm/s. PSV 125-180 cm/sec and ICA/CCA PSV Ratio ? 2.0 is also consistent with 50-69% stenosis 4. Greater than 70% stenosis to near occlusion= ICA PSV > 230 cm/s: ratio > 4.0: ICA EDV > 100 cm/s. 5. Near occlusion= ICA PSV velocities may be low or undetectable: variable ratio and ICA EDV. 6. Total occlusion=unable to detect flow. [facility], , 08/09/2024 2:59 PM
--- NOTE | 2024-08-12 10:15 | CA ---
Transthoracic Echo Report Name: Veronica Guzman Age: 74 Gender: F : 1950 Exam Date: 08/09/2024 14:38 Exam Location: [facility] Ht (in): 62 Wt (lb): 125 Ordering Physician: Delmar Pulliam MD Attending/Referring Phys: Financial Systems Director Gill Malone RDCS Procedure CPT: Indications: Z12.2 LUNG CA SCR Z87.891 FORMER I34.0 I65.29 Cardiac Hx: Technical Quality: Good Contrast 1: Total Dose (mL): Contrast 2: Total Dose (mL): MEASUREMENTS (Male / Female) Normal Values 2D ECHO LV Diastolic Diameter PLAX 4.6 cm 4.2 - 5.9 / 3.9 - 5.3 cm LV Systolic Diameter PLAX 3.1 cm IVS Diastolic Thickness 0.7 cm 0.6 - 1.0 / 0.6 - 0.9 cm LVPW Diastolic Thickness 0.9 cm 0.6 - 1.0 / 0.6 - 0.9 cm LV Relative Wall Thickness 0.3 LVOT Diameter 1.9 cm LV Diastolic Volume MOD BP 97.3 cm??? 67 - 155 / 56 - 104 cm??? LV Systolic Volume MOD BP 38.2 cm??? 22 - 58 / 19 - 49 cm??? LV Ejection Fraction MOD BP 60.8 % >= 55 % LV Cardiac Index MOD BP 2504.8 cm???/min???m??? LV Diastolic Volume MOD 4C 92.8 cm??? LV Systolic Volume MOD 4C 37.3 cm??? LV Ejection Fraction MOD 4C 59.8 % LV Cardiac Index MOD 4C 2351.5 cm???/min???m??? LV Diastolic Length 4C 8.1 cm LV Systolic Length 4C 6.5 cm LV Diastolic Volume MOD 2C 92.7 cm??? LV Systolic Volume MOD 2C 31.6 cm??? LV Ejection Fraction MOD 2C 65.9 % LV Cardiac Index MOD 2C 2588.8 cm???/min???m??? LV Diastolic Length 2C 7.3 cm LV Systolic Length 2C 5.2 cm LA Volume 69.0 cm??? 18 - 58 / 22 - 52 cm??? LA Volume Index 43.7 cm???/m??? 16 - 28 cm???/m??? Ascending Aorta Diameter 3.6 cm DOPPLER AV Peak Velocity 146.1 cm/s AV Peak Gradient 8.5 mmHg AV Mean Velocity 110.6 cm/s AV Mean Gradient 5.3 mmHg AV Velocity Time Integral 36.0 cm LVOT Peak Velocity 104.5 cm/s LVOT Peak Gradient 4.4 mmHg LVOT Velocity Time Integral 27.6 cm LVOT Stroke Volume 76.2 cm??? LVOT Stroke Volume Index 48.7 ml/m??? LVOT Cardiac Index 3228.0 cm???/min???m??? AV Area Cont Eq vti 2.1 cm??? AV Area Cont Eq pk 2.0 cm??? MV Area PHT 5.0 cm??? Mitral E Point Velocity 78.8 cm/s Mitral A Point Velocity 110.1 cm/s Mitral E to A Ratio 0.7 MV Deceleration Time 152.4 ms TR Peak Velocity 240.7 cm/s TR Peak Gradient 23.2 mmHg Right Atrial Pressure 5.0 mmHg Pulmonary Artery Systolic Pressu 28.2 mmHg Right Ventricular Systolic Press 28.2 mmHg PV Peak Velocity 86.1 cm/s PV Peak Gradient 3.0 mmHg FINDINGS Left Ventricle Left ventricular ejection fraction is estimated at 60 %. Left ventricular cavity size normal. Left ventricular wall thickness normal. No obvious regional wall motion abnormalities. Right Ventricle Moderate right ventricular dilatation. Normal right ventricular global systolic function. Right ventricular systolic pressure within normal limits. Right Atrium Mild right atrial dilatation. Left Atrium Moderately increased left atrial volume. Mitral Valve Structurally normal mitral valve. No evidence for mitral valve prolapse. No mitral stenosis. Trace to mild mitral regurgitation. Aortic Valve Trileaflet aortic valve. No aortic valve stenosis or regurgitation. Tricuspid Valve Structurally normal tricuspid valve. No tricuspid stenosis. Mild tricuspid regurgitation. Pulmonic Valve Structurally normal pulmonic valve. No pulmonic stenosis. No pulmonic regurgitation. Pericardium No pericardial effusion. Aorta Normal size aortic root and proximal ascending aorta. CONCLUSIONS Indication lung cancer, evaluate for pericardial effusion Normal LV size and function No pericardial effusion No intracardiac masses Biatrial enlargement Previewed by: Dr. Michael Luo MD (Electronically Signed) Final Date: 12 August 2024 10:14
== END | disposition home or self-care (01) ==
LOC: RADCTMAIN 13:39
PROVIDERS: ATTEND Internal Medicine
DX: Z12.2 Encounter for screening for malignant neoplasm of respiratory organs (principal); C34.90 Malignant neoplasm of unspecified part of unspecified bronchus or lung; I34.0 Nonrheumatic mitral (valve) insufficiency; I65.29 Occlusion and stenosis of unspecified carotid artery; I65.23 Occlusion and stenosis of bilateral carotid arteries; E78.00 Pure hypercholesterolemia, unspecified; Z87.891 Personal history of nicotine dependence; R91.8 Other nonspecific abnormal finding of lung field
CPT/HCPCS: 71271; 93306; 93880